=== PATIENT | male | born 1970 | race Caucasian/White ===

== ENCOUNTER 2019-01-11 12:25 | Emergency (ER) | payer BC ==
[2019-01-11 12:28] VITALS: TEMP 98.6
--- NOTE | 2019-01-11 12:43 | ED ---
General Adult HPI - General Chief complaint: Fall Stated complaint: fall, ankle injury Time Seen by Provider: 01/11/19 12:31 Source: patient, EMS, RN notes reviewed Mode of arrival: EMS Limitations: no limitations - History of Present Illness Initial comments: Patient is a pleasant 48-year-old male presenting to the emergency Department with left ankle pain. Onset of symptoms was prior to arrival. Patient was working on a ladder when the ladder slipped and he fell approximately 8 feet. Patient landed on the left ankle. Patient complains of significant discomfort there. Patient denies any other area of injury. Patient states he did receive an abrasion to the right wrist however denies discomfort there. No head injury or loss of consciousness. No neck or back pain. No chest pain or dyspnea. No abdominal pain. Patient does not want any additional pain medication at this time. Patient did receive medication by EMS. - Related Data Home Medications Medication Instructions Recorded Confirmed No Known Home Medications 01/11/19 01/11/19 Allergies Allergy/AdvReac Type Severity Reaction Status Date / Time No Known Allergies Allergy Verified 01/11/19 13:24 Review of Systems ROS Statement: Those systems with pertinent positive or pertinent negative responses have been documented in the HPI. ROS Other: All systems not noted in ROS Statement are negative. Constitutional: Denies: fever Eyes: Denies: eye pain ENT: Denies: ear pain Respiratory: Denies: cough Cardiovascular: Denies: chest pain Endocrine: Denies: fatigue Gastrointestinal: Denies: abdominal pain Genitourinary: Denies: dysuria Musculoskeletal: Denies: back pain Skin: Denies: rash Neurological: Denies: headache, weakness, confusion Past Medical History Past Medical History: No Reported History History of Any Multi-Drug Resistant Organisms: None Reported Additional Past Surgical History / Comment(s): Eye surgery Past Psychological History: No Psychological Hx Reported Smoking Status: Former smoker Past Alcohol Use History: None Reported Past Drug Use History: None Reported General Exam Limitations: no limitations General appearance: alert, in no apparent distress Head exam: Present: atraumatic, normocephalic Eye exam: Present: normal appearance, PERRL ENT exam: Present: normal oropharynx Neck exam: Present: normal inspection. Absent: tenderness Respiratory exam: Present: normal lung sounds bilaterally. Absent: chest wall tenderness Cardiovascular Exam: Present: regular rate, normal rhythm Expanded Peripheral pulses: 2+: Posterior Tibialis (L), Dorsalis Pedis (L) GI/Abdominal exam: Present: soft. Absent: tenderness Extremities exam: Present: normal capillary refill, other (Left medial and lateral ankle with swelling and tenderness. Distally the extremity is neurovascular intact.) Back exam: Present: normal inspection. Absent: tenderness Neurological exam: Absent: motor sensory deficit Psychiatric exam: Present: normal affect, normal mood Skin exam: Present: normal color Course Vital Signs 01/11/19 01/11/19 01/11/19 12:26 13:30 13:38 Temperature 98.6 F Pulse Rate 77 68 69 Respiratory 18 16 18 Rate Blood Pressure 132/77 118/91 118/92 O2 Sat by Pulse 96 97 97 Oximetry - Reevaluation(s) Reevaluation #1: 01/11/19 13:25 Patient is now requesting pain medication. 01/11/19 13:57 Case discussed with orthopedics, practitioner Pamela who will review films and call back. Procedures - Orthopedic Fracture Reduction Fracture #1 Consent Obtained: verbal consent Side: left Fracture Reduction Location: tibia, fibula Technique: direct manipulation, traction/counter-traction Post Reduction X-rays Demonstrate: acceptable reduction Post-Reduction Neuro Exam: intact Post-Reduction Vascular Exam: intact Patient Tolerated Procedure: well, no complications - Procedural Sedation Procedural Sedation Start Time: 13:00 Procedural Sedation Stop Time: 13:56 Indications: fracture/dislocation reduction Mallampati Airway Score: 3 Preparation: stem shaper applied, pulse oximeter, capnometry used, supplemental O2 applied IV Etomidate Dose (mgs): 20 Complications: none Interventions: oxygen applied Patient Tolerated Procedure: well, no complications Medical Decision Making - Medical Decision Making Patient reevaluated and updated. Case was discussed in detail with orthopedics, Dr. Natarajan at [facility], who will accept transfer. - Radiology Data Radiology results: image reviewed (X-ray of the left ankle shows comminuted fractures of the distal left fibular diaphysis as well as epiphysis and metaphysis of the left tibia with disruption of the ankle mortise. Postreduction films show significant improvement of alignment.) Disposition Clinical Impression: Fracture of distal end of tibia with fibula Disposition: OTHER INSTITUTION NOT DEFINED Is patient prescribed a controlled substance at d/c from ED?: No Referrals: Nicholas Durham Jr, [Primary Care Provider] - 1-2 days Time of Disposition: 14:29 - Out of Hospital Transfer - Req. Specs Out of Hospital Transfer - Requested Specifics: Other Emergency Center
--- NOTE | 2019-01-11 13:03 | XR ---
EXAMINATION TYPE: XR ankle limited LT , 2 VIEWS DATE OF EXAM ORDERED: 01/11/2019 HISTORY: fall. COMPARISON: None. FINDINGS: There is a comminuted fracture of the distal left fibular diaphysis as well as the distal left tibial metaphysis and epiphysis. The ankle mortise appears disrupted. IMPRESSION: COMMINUTED FRACTURES OF THE DISTAL LEFT FIBULAR DIAPHYSIS WELL THE DISTAL EPIPHYSIS AND METAPHY SIS OF THE LEFT TIBIA WITH DISRUPTION OF THE ANKLE MORTISE. CODE A: INITIAL ENCOUNTER FOR CLOSED FRACTURE.
[2019-01-11] MEDS ORDERED: HYDROmorphone 1 MG/ML 1 ML SYRINGE IVP STA (13:25)
[2019-01-11] MEDS ORDERED: ETOMIDATE 2 MG/ML 10 ML VIAL IVP STA (13:27)
[2019-01-11 13:50] VITALS: RESP 18
[2019-01-11] MEDS ORDERED: DIPH,PERTUS(ACELL)TETVAC-LF 0.5 ML VIAL IM ONE (14:36)
--- NOTE | 2019-01-11 14:53 | XR ---
EXAMINATION TYPE: XR ankle limited LT DATE OF EXAM: 01/11/2019 COMPARISON: NONE HISTORY: 48-year-old male status post reduction TECHNIQUE: 2 views FINDINGS: Redemonstrated markedly comminuted, intra-articular fracture of the distal tibia. Improvement in the lateral displacement and medial apex angulation but with residual displacement of multiple fracture f ragments. Additional comminuted fracture of the distal fibular shaft. After reduction, improved align ment. IMPRESSION: Markedly comminuted intra-articular fracture distal tibia shows persistent displacement of fracture f ragments but improved from earlier today. Additional comminuted fracture distal fibular shaft shows i mprovement in alignment and angulation. Overlying fiberglass cast.
[2019-01-11 15:08] VITALS: BP 102/91; PULSE 67
== END 2019-01-11 15:20 | disposition other institution (70) ==
LOC: EC 12:25
DX: S82.832A Other fracture of upper and lower end of left fibula, initial encounter for closed fracture (principal); S82.252A Displaced comminuted fracture of shaft of left tibia, initial encounter for closed fracture; Z23 Encounter for immunization; Z87.891 Personal history of nicotine dependence; W11.XXXA Fall on and from ladder, initial encounter
CPT/HCPCS: 73600; 90715; 99285; 27752; 99152; 99153 ×3; 90471; 96374; J1170